=== PATIENT | male | born 1970 | race Caucasian/White ===

== ENCOUNTER 2019-12-03 18:38 | Emergency (ER) | payer OTHER, SELFPAY ==
[2019-12-03 18:50] VITALS: BP 158/95; PULSE 85; RESP 16; TEMP 36.9; O2SAT 98
--- NOTE | 2019-12-03 19:12 | ED.GENADULT ---
HPI - General Adult General Chief complaint: Urogenital-Male Stated complaint: dark urine Time Seen by Provider: 12/03/19 19:12 Source: patient Mode of arrival: ambulatory Limitations: no limitations History of Present Illness HPI narrative: 49-year-old male patient presents to the [facility] with complaints of urinary symptoms for the past week. Patient states that he has had some dark urine but denies any odor. Denies any pain with urination. Denies any fevers, low back pain. Patient denies any concerns for STDs. Patient denies taking anything for his symptoms. Patient denies history of diabetes. Related Data Allergies Allergy/AdvReac Type Severity Reaction Status Date / Time No Known Allergies Allergy Unverified 12/03/19 18:53 Review of Systems Review of Systems: Narrative: CONSTITUTIONAL: Denies fever, chills, or sweats. EYES: Denies visual changes, redness, or discharge. ENT: Denies rhinorrhea, congestion, sore throat, or otalgia. CARDIOVASCULAR: Denies chest pain, palpitations, or edema. RESPIRATORY: Denies cough or dyspnea. GASTROINTESTINAL: Denies abdominal pain, nausea, vomiting, or diarrhea. GENITOURINARY: Denies dysuria or hematuria. Positive dark urine x1 week SKIN: Denies rash or itching. MUSCULOSKELETAL: Denies back pain, joint pain, or myalgia. NEUROLOGIC: Denies headache, numbness, or weakness. PSYCHIATRIC: Denies anxiety or depression. [facility] Past Medical History Medical History (Updated 12/03/19 @ 19:18 by ASHLEY Nolen) Kidney stones Family History Family History Other Diabetes mellitus Family history of cardiovascular disease Social History Social History Smoking status: Never smoker Alcohol intake: never Comments At the time of my signature I agree with nursing past medical history, surgical, social, and family history. There is no relevant family history pertinent to the presenting complaint. Exam Narrative: Exam Narrative: GENERAL: Well-appearing, well-nourished, and in no acute distress. HEAD: Normocephalic, atraumatic. EYES: PERRLA and EOMI. ENT: Nares clear, no rhinorrhea or epistaxis. Mucous membranes moist. NECK: Supple. No lymphadenopathy CHEST: Clear to auscultation. No respiratory distress. HEART: Regular rate and rhythm. No murmur heard. Normal peripheral pulses. ABDOMEN: Soft, nontender, nondistended, normal active bowel sounds. No CVA tenderness on percussion. EXTREMITIES: Normal range of motion. No edema. SKIN: Warm, dry, no rash. NEURO: No focal deficits. Alert and oriented x3. Course Vital Signs Vital signs: Vital Signs Temperature 36.9 C 12/03/19 18:50 Pulse Rate 85 12/03/19 18:50 Respiratory Rate 16 12/03/19 18:50 Blood Pressure 158/95 H 12/03/19 18:50 Pulse Oximetry 98 12/03/19 18:50 Temperature 36.9 C 12/03/19 18:50 Pulse Rate 85 12/03/19 18:50 Respiratory Rate 16 12/03/19 18:50 Blood Pressure 158/95 H 12/03/19 18:50 Pulse Oximetry 98 12/03/19 18:50 Vital signs reviewed. The patient has been informed that they may have pre-hypertension or Hypertension based on a BP reading in the department. I recommend that the patient call the primary care provider listed on their discharge instructions or a physician of their choice this week to arrange follow up for further evaluation of possible pre-hypertension or Hypertension Medical Decision Making Differential Diagnosis Differential Diagnosis: Differential diagnosis: Uncomplicated lower UTI, uncomplicated UTI, polynephritis, penile trauma,balanoposthitis, phimosis, paraphimosis, testicular torsion, epididymitis, prostatitis, varicocele, spermatocele, hydrocele, hernia. Cussed with patient that his urine is positive today for leukocytes and nitrates which can be indicative of an infection therefore we will go ahead and start him on an antibiotic and send his
== END 2019-12-03 19:23 | disposition home or self-care (01) ==
PROVIDERS: Emergency Provider Nurse Practitioner Family
DX: N30.00 Acute cystitis without hematuria (principal)
CPT/HCPCS: 81003; 87077; 87086; 87088; 87186; 99213; G0463

== ENCOUNTER 2025-06-30 20:11 | Emergency (ER) | payer OTHER, SELFPAY ==
--- NOTE | ~2025-06-30 | CT_ITS ---
CT HEAD NON-CONTRAST CT C-SPINE CT MAXILLOFACIAL Clinical History: syncope, head injury Comparison: None Technique: Unenhanced images through C-spine face and brain. Coronal, sagittal reformats. CT images acquired with automatic exposure control for dose reduction DLP: 315 mGy-cm Findings: Head: Sulci, ventricles: Unremarkable. No intracerebral hemorrhage. No evidence acute territorial infarct. No mass effect, midline shift, intra-/extra-axial fluid collection. Bony calvarium intact. Visualized paranasal sinuses: Clear. Mastoid air cells: Clear. C-spine: No acute fracture. Grade 1 anterolisthesis of C2 on 3. Straightening of normal cervical lordosis. Moderate degenerative changes. Prevertebral soft tissues within normal limits. Visualized lung apices: Clear. Visualized thyroid: Unremarkable. No enlarged cervical nodes. CT maxillofacial: No fracture. Right periorbital and forehead contusion. IMPRESSION: HEAD: 1. No acute intracranial findings. C-SPINE: 1. No acute fracture. CT MAXILLOFACIAL: 1. No fracture. Reviewed, dictated and finalized at location R. IMPRESSION: HEAD: 1. No acute intracranial findings. C-SPINE: 1. No acute fracture. CT MAXILLOFACIAL: 1. No fracture.
--- NOTE | ~2025-06-30 | XR_ITS ---
EXAMINATION: XR chest 2V 06/30/2025 21:01 INDICATION: Syncope PROCEDURE: 2 view chest COMPARISON: No prior studies for comparison. FINDINGS: The lungs are clear. The cardiomediastinal silhouette is within normal limits. There are no pleural effusions. There is no pneumothorax suspected. IMPRESSION: 1: NO ACUTE CARDIOPULMONARY DISEASE. Reviewed, dictated and finalized at location O.
[2025-06-30 20:17] VITALS: BP 151/87; PULSE 85; RESP 18; TEMP 36.9; O2SAT 98
--- NOTE | 2025-06-30 20:44 | ECG_ITS ---
Test Date: 2025-06-30 20:53:43 Measurements Intervals [place] Rate: 86 P: 60 ID: [id number] QRS: 36 QRSD: 94 T: 17 QT: 346 QTc: 415 Interpretive Statements SINUS RHYTHM No previous ECG available for comparison Electronically Signed On 07-01-2025 11:03:36 CDT by Juan Roper M.D.
--- NOTE | 2025-06-30 21:05 | ED_ITS ---
HPI - Syncope General Chief Complaint: Syncope Stated Complaint: syncope Time Seen by Provider: 06/30/25 20:44 Source: patient Mode of arrival: ambulatory Limitations: no limitations History of Present Illness HPI narrative: This is a 55-year-old male that presents to the emergency department after a syncopal episode. Reports he felt a cramping sensation in his abdomen. He then passed out. Denies prodromal chest pain, shortness of breath, palpitations. No symptoms currently. Related Data Home Medications ?Medication ?Instructions ?Recorded ?Confirmed ?Last Taken ?Type omega-3 fatty acids 1,250 mg 1,250 mg PO DAILY 2 3 12/07/24 Unknown History capsule famotidine-Ca carb-mag hydrox 10 1 tablet PO DAILY PRN 12/07/24 12/07/24 Unknown History mg-800 mg-165 mg chewable tablet (Pepcid Complete) Allergies Allergy/AdvReac Type Severity Reaction Status Date / Time No Known Allergies Allergy Verified 06/30/25 20:26 Review of Systems 2 Review of Systems: All systems reviewed & are unremarkable except as noted in HPI and below PMFSH Past Medical History Medical History (Updated 06/30/25 @ 23:47 by Mari Keller PA-C) UTI (urinary tract infection) Colon cancer screening Elevated blood pressure reading in office without diagnosis of hypertension BMI 30.0-30.9,adult GERD (gastroesophageal reflux disease) Mixed hyperlipidemia (11/30/23) cholesterol 246, triglycerides 270, HDL 44, LDL 158 with ratio 5.6 on 11/30/2023. Elevated fasting glucose (11/30/23) fasting glucose elevated to 104 on 11/30/2023. BMI 31.0-31.9,adult Obesity (BMI 30.0-34.9) Encounter for prostate cancer screening PSA 1.53 on 11/30/2023. Encounter for wellness examination in adult Kidney stones Surgical History Surgical History (Updated 10/16/23 @ 15:34 by Aidan Joya CMA) H/O left knee surgery 1990 Family History Family History (Updated 10/16/23 @ 15:34 by Aidan Joya CMA) Father Heart disease Mother Thyroid disease Other Diabetes mellitus Family history of cardiovascular disease Social History Social History Smoking status: Never smoker Alcohol intake: never Substance use: never Exam 2 Narrative: GENERAL: Well-appearing, well-nourished, and in no acute distress. HEAD: Normocephalic. Bruising, small (1cm) linear laceration to the right upper lip EYES: PERRLA and EOMI. ENT: Nares clear, no rhinorrhea or epistaxis. Mucous membranes moist. Oropharynx without tonsillar hypertrophy exudate or other lesions. Bilateral TMs pearly gustafson non-bulging NECK: Supple. No adenopathy or masses. CHEST: Clear to auscultation. No respiratory distress. No wheezes rales or rhonchi HEART: Regular rate and rhythm. No murmur heard. Normal peripheral pulses. ABDOMEN: Soft, nontender, nondistended, normal active bowel sounds. EXTREMITIES: Normal range of motion. No edema or obvious deformities. Strength equal in bilateral upper and lower extremities (5/5) SKIN: Warm, dry, no rash. NEURO: No focal deficits. Alert and oriented x3. Cranial nerves 2-12 grossly intact PSYCH: Normal mood and affect Course Vital Signs Vital signs: Vital Signs Temperature 98.5 F 06/30/25 20:17 Pulse Rate 85 06/30/25 20:17 Respiratory Rate 18 06/30/25 20:17 Blood Pressure 151/87 H 06/30/25 20:17 Pulse Oximetry 98 06/30/25 20:17 Oxygen Delivery Room Air 06/30/25 20:17 Temperature 98.5 F 06/30/25 20:17 Pulse Rate 77 06/30/25 22:51 Respiratory Rate 12 06/30/25 22:51 Blood Pressure 137/83 06/30/25 22:51 Pulse Oximetry 100 06/30/25 22:51 Oxygen Delivery Room Air 06/30/25 20:17 Procedures Laceration Laceration 1: Date: 06/30/25 Site: lip Side (If applicable): right Size (cm): 1 Description: linear Depth: simple, single layer Local Anesthetic: none Pre-repair: wound explored ====== Skin Level ====== Skin layer closed with: other (Fast absorbing gut) Size (cm): 5-0 Number of sutures: 1 Technique: simple, interrupted ====== Subcutaneous Layer ====== ====== Muscle Layer ====== ====== Tendon Layer ====== MDM - Syncope MDM Narrative Medical decision making narrative: Patient presents the emergency department after a syncopal episode today. Patient is neurologically intact. His vitals are stable. CBC with mild leukocytosis to 13.5. Patient is afebrile with no localizing infectious symptoms. Metabolic panel without concerning findings. EKG without acute changes, baseline troponin is negative. Chest x-ray without acute cardiopulmonary abnormality. CT brain, facial bones and cervical spine without acute findings. Patient updated on tetanus vaccination. Small laceration to the lip with suture. Will be started on prophylactic antibiotics. [place] syncope risk score makes him very low risk. He is to follow up with PCP. He was given warnings to return to the ER Differential Diagnosis Differential diagnosis: Likely syncope due to orthostatic hypotension, vasovagal syncope, pulmonary embolism, dehydration and other (Subdural hematoma, facial bone fracture, cervical spine fracture) Lab Data Attestation: I reviewed the patient's lab results. 06/30/25 21:33 06/30/25 20:50 Labs: Lab Results 06/30/25 06/30/25 Range/Units 20:50 21:33 WBC 13.5 H (4.5-10.0) K/mm3 RBC 5.21 (4.6-6.20) M/mm3 Hgb 14.7 (14.0-18.0) g/dL Hct 42.0 (42.0-52.0) % MCV 80.6 (80-100) fl MCH 28.2 (26-34) pg MCHC 35.0 (32-36) g/dl RDW 12.3 (11.5-14.5) % Plt Count 275 (150-375) k/mm3 MPV 9.2 (7.4-10.4) fl Immature Gran % (Auto) 0.4 (0-0.5) % Neut % (Auto) 82.5 H (45.5-73.1) % Lymph % (Auto) 8.1 L (18.3-44.2) % [place] % (Auto) 8.1 (2.6-8.5) % Eos % (Auto) 0.7 (0-4.4) % Baso % (Auto) 0.2 (0.2-1.2) % Lymph # (Auto) 1.10 (0.9-3.2) K/mm3 [place] # (Auto) 1.1 H (0.1-0.6) K/mm3 Eos # (Auto) 0.1 (0-0.3) K/mm3 Baso # (Auto) 0.0 (0.0-0.1) K/mm3 Abs Immat Gran (auto) 0.05 H (0.00-0.031) K/mm3 Absolute Neuts (auto) 11.2 H (1.3-6.7) K/mm3 Absolute Nucleated RBC 0.000 (0.0-0.012) K/mm3 Nucleated RBC % 0.0 (0.0-0.2) % D-Dimer 0.42 (<0.48) ug/mL Sodium 135 L (137-145) mmol/L Potassium 3.7 (3.4-5.0) mmol/L Chloride 102 (98-107) mmol/L Carbon Dioxide 25 (22-30) mmol/L Anion Gap 8 (4-12) mmol/L BUN 15 (9-20) mg/dL Creatinine 1.25 (0.7-1.3) mg/dL Estim Creat Clear Calc 70 ml/min Estimated GFR 60 (59 - ) Glucose 113 H (65-110) mg/dL Calcium 9.2 (8.4-10.2) mg/dL Total Bilirubin 0.9 (0.2-1.3) mg/dL AST 29 (17-59) U/L ALT 26 (6-50) U/L Alkaline Phosphatase 61 (38-126) U/L Troponin I < 0.012 (0.000-0.034) ng/mL Total Protein 8.4 H (6.3-8.2) g/dL Albumin 4.6 (3.5-5.1) g/dL Imaging Data Radiologist's impression: CT brain: No acute intracranial hemorrhage. No midline shift or mass effect. The territorial gustafson-white matter differentiation is maintained throughout. Age related cerebral volume loss. Lauren ventricular and subcortical white matter hypoattenuation, consistent with chronic microangiopathy CT cervical spine and facial bones: No acute facial fracture or cervical spine fracture ITS Impressions Chest X-Ray 06/30/25 21:03 IMPRESSION: 1: NO ACUTE CARDIOPULMONARY DISEASE. ECG Data EKG #1: ECG completion date: 06/30/25 EKG Interpretation: normal rate, sinus rhythm, no ST changes and normal QT Critical Care Time Critical Care Time Critical Care Time: No Discharge Plan Discharge Clinical Impression: Laceration Syncope Qualifiers: Syncope type: unspecified Qualified Code(s): R55 - Syncope and collapse Head injury Qualifiers: Encounter type: initial encounter Qualified Code(s): S09.90XA - Unspecified injury of head, initial encounter Patient Disposition: Home Condition: Stable Instructions: Laceration (ED), Syncope (ED), Head Injury (ED), Care For Your Absorbable Stitches (ED) Additional Instructions: Return to the emergency department if you experience fever, chest pain, shortness of breath, redness or swelling of your wound, abnormal drainage from your wound, vision changes, vomiting, weakness, numbness, or any other symptoms that are concerning to you. Rest. Remain well hydrated. Ice to the area. Take oral antibiotic as prescribed. Tylenol or Ibuprofen as needed for pain Follow-up with your primary care doctor Patient Language: Somali Prescriptions: New amoxicillin-pot clavulanate 875-125 mg tablet 1 tablet PO Q12H 5 Days Qty: 10 0RF No Action omega-3 fatty acids 1,250 mg capsule 1,250 mg PO DAILY Pepcid Complete 10-800-165 mg tablet,chewable 1 tablet PO DAILY PRN Follow-up/Referrals: Sal Mcallister MD [Primary Care Provider, [facility]]
[2025-06-30 21:07] LABS: Alanine Aminotransferase 26 U/L (6-50); Albumin Level 4.6 g/dL (3.5-5.1); Alkaline Phosphatase 61 U/L (38-126); Anion Gap 8 mmol/L (4-12); Aspartate Amino Transferase 29 U/L (17-59); Bilirubin,Total 0.9 mg/dL (0.2-1.3); Blood Urea Nitrogen 15 mg/dL (9-20); Calcium 9.2 mg/dL (8.4-10.2); Carbon Dioxide 25 mmol/L (22-30); Chloride 102 mmol/L (98-107); Estimated CRCL calculation 70 ml/min; Estimated Glomerular Filt Rate 60; Glucose 113 mg/dL (65-110); Potassium 3.7 mmol/L (3.4-5.0); Sodium 135 mmol/L (137-145); Total Protein 8.4 g/dL (6.3-8.2)
[2025-06-30 21:19] LABS: Troponin I < 0.012 ng/mL (0.000-0.034)
--- NOTE | 2025-06-30 21:36 | PC.NURSE ---
2100--swelling to right side of mouth-no active bleeding
[2025-06-30 21:38] VITALS: BP 137/89; PULSE 82; RESP 18; O2SAT 99
[2025-06-30 21:45] LABS: Hematocrit 42.0 % (42.0-52.0); Hemoglobin 14.7 g/dL (14.0-18.0); Immature Granulocyte Percent A 0.4 % (0-0.5); Lymphocytes Absolute Auto 1.10 K/mm3 (0.9-3.2); Mean Corpuscular HGB Conc 35.0 g/dl (32-36); Mean Corpuscular Hemoglobin 28.2 pg (26-34); Mean Corpuscular Volume 80.6 fl (80-100); Nucleated Red Blood Cells Absolute Auto 0.000 K/mm3 (0.0-0.012); Nucleated Red Blood Cells Perc 0.0 % (0.0-0.2); Platelet Count Result 275 k/mm3 (150-375); Red Blood Count 5.21 M/mm3 (4.6-6.20); White Blood Count 13.5 K/mm3 (4.5-10.0)
[2025-06-30] MEDS: TETANUS,DIPHTHERIA,AC PERTUSSIS ADULT (0.5 ML) BOOSTRIX IM (22:50)
[2025-06-30 22:51] VITALS: BP 137/83; PULSE 77; RESP 12; O2SAT 100
[2025-07-01 00:24] VITALS: BP 145/80; PULSE 72; RESP 14; O2SAT 97
== END 2025-07-01 00:25 | disposition home or self-care (01) ==
PROVIDERS: Emergency Provider Physician Assistant; PCP Family Medicine
DX: R55 Syncope and collapse (principal); S01.511A Laceration without foreign body of lip, initial encounter; Z23 Encounter for immunization; K21.9 Gastro-esophageal reflux disease without esophagitis; E78.2 Mixed hyperlipidemia; E66.9 Obesity, unspecified; Z68.30 Body mass index [BMI] 30.0-30.9, adult; Z87.442 Personal history of urinary calculi; Z87.440 Personal history of urinary (tract) infections; W18.39XA Other fall on same level, initial encounter
CPT/HCPCS: 12011; 36415; 70450; 70486; 71046; 72125; 80053; 84484; 85025; 85380; 90471; 90715; 93005; 99284